=== PATIENT | female | born 1975 | race Hispanic/Latino ===

== ENCOUNTER 2025-08-21 05:58 | Day surgery (SDC) | payer BC ==
[2025-08-19 13:14] LABS: IMMATURE GRANULOCYTE ABSOLUTE 0.01 K/uL (0-1); NUCLEATED RED BLOOD CELLS 0.0 % (0.0-0.19); PLATELET COUNT (AUTO) 349 K/uL (130-400); RED BLOOD CELL COUNT(AUTO) 4.25 MIL/uL (4.00-5.50); RED CELL DISTRIBUTION WIDTH 13.4 % (11.0-15.5); WHITE BLOOD COUNT (AUTO) 6.0 K/uL (4.8-10.8)
[2025-08-19 13:16] VITALS: BP 119/62; PULSE 57; RESP 18; TEMP 97.9
[2025-08-19 13:23] LABS: CREATININE 0.7 mg/dL (0.5-1.0); GLOMERULAR FILTR. RATE CALC 107.0 mL/min (>90); GLUCOSE,RANDOM 82.0 mg/dL (70-105); SODIUM SERUM 140.0 mmol/L (136-145); UREA NITROGEN, BLOOD 11.0 mg/dL (7-18)
[2025-08-19 13:25] LABS: INR 0.97 (0.85-1.15)
--- NOTE | 2025-08-19 18:22 | EKG ---
[facility] Test Date: 2025-08-19 Test Time: 12:52:48 Pat Name: TISHA MORGAN Department: [facility] Room: Gender: F [employer] Driver: [id number] : 1975 Requested By: MARGARITO HOUSER Order Number: [id number] Reading MD: Daphney Null Measurements Intervals [place] Rate: 52 P: 22 MI: 131 QRS: 28 QRSD: 80 T: 40 QT: 441 QTc: 411 Interpretive Statements Sinus rhythm No previous ECG available for comparison Electronically Signed On 08-20-2025 16:11:23 CDT by Daphney Null Please click the below link to view image of tracing.
[2025-08-21] VITALS (14 sets, daily range): BP systolic 106–134; BP diastolic 59–75; PULSE 64–103; RESP 15–18; TEMP 97.2–97.9
[~2025-08-21] VITALS: Ht 165.1 cm; Wt 74.1 kg
[~2025-08-21 05:58] MED LIST: LEVO125C5 PO; SERT-439 PO
[2025-08-21] MEDS ORDERED: LACTATED RINGERS 1000ML 1,000 ML IV ONE (06:48)
[2025-08-21] MEDS ORDERED: SUGAMMADEX SODIUM 200 MG/2 ML VIAL IV ONE (07:16)
[2025-08-21] MEDS ORDERED: LIDOCAINE PF 100MG/5ML (2%) SYRINGE 5ML ONE (07:22)
[2025-08-21] MEDS ORDERED: SUCCINYLCHOLINE CHLORIDE 20 MG/ML 10 ML VIAL ONE (07:23)
[2025-08-21] MEDS ORDERED: MIDAZOLAM HCL 1 MG/ML 2ML VIAL ONE (07:23)
[2025-08-21] MEDS ORDERED: INDOCYANINE GREEN 25 MG VIAL IJ ONE (07:24)
[2025-08-21] MEDS: INDOCYANINE GREEN 25 MG VIAL IJ ONE (07:50)
--- NOTE | 2025-08-21 09:51 | OP ---
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 IC green appropriately identified cystic duct, hepatic duct and common bile duct. Of note very short cystic and hepatic duct branching into left and right very close to the cystic as well. No evidence of filling defects or ductal biliary dilation.] PROCEDURE: [1. Robotic assisted laparoscopic cholecystectomy. 2. IC green cholangiography] ESTIMATED BLOOD LOSS: [10 cc] INDICATIONS: [49-year-old female with chronic right upper quadrant pain, nausea who was found to multiple gallstones in a contracted gallbladder concerning for symptomatic cholelithiasis and chronic cholecystitis.. Patient failed conservative management with dietary changes and medications. Recommendation was given for surgical removal of gallbladder. Risks, benefits, alternative who presented to the patient including the possibility of symptoms remaining even with cholecystectomy. All questions were answered. Patient agreed proceed with surgical intervention] DESCRIPTION OF PROCEDURE: [After appropriate consent was obtained, the patient was brought into the operating room and placed in supine position on the operating table. SCDs were placed, preop antibiotics were given. Patient underwent induction of general anesthesia, endotracheal intubation. Patient was then prepped and draped in usual sterile fashion. Time-out was performed. Through a left subcostal incision, Veress needle was inserted into the peritoneal cavity. Insufflation was allowed to 12 mmHg. Through a supraumbilical incision, 8 mm trocar and laparoscope were inserted into the peritoneal cavity using Yurpyview. Veress needle and this vicinity were examined with no signs of injury. Rest of my trocars were all placed under direct visualization. Patient was positioned on a reverse Trendelenburg at 20. The Ishan robot was docked. Upon examination of the gallbladder, it appeared enlarged, mildly inflamed. The liver and gallbladder were retracted cephalad exposing area for Calot's triangle dissection. Using hook electrocautery, dissection was accomplished. IC green cholangiography showed proper identification of the cystic duct, visualization of hepatic and common bile duct. Cystic duct was short, and hepatic duct divided into left and right shortly after the cystic duct takeoff. Cystic artery was also isolated. Cystic artery was clipped once and cauterized and sharply divided. Cystic duct was clipped 3 times with two of these clips staying behind after sharp division. Gallbladder was removed from the gallbladder fossa using bipolar energy. Hemostasis was achieved with bipolar energy as well. Once removed from the gallbladder fossa, gallbladder was placed in an Endo-Catch bag. [place] robot was undocked at this time. Gallbladder was removed from the peritoneal cavity with a bag through an 8 mm trocar site. The fascia of the site was closed with 0 Vicryl suture through a suture Passer. Final inspection revealed adequate hemostasis, no concerns for leakage. Counts were correct at the end of the case. All instruments were removed. Abdomen was allowed to deflate. Skin incisions were closed with 4-0 Monocryl. Dermabond was applied over the incisions. Patient tolerated the procedure well. Was transferred to recovery in a good condition ] MARGARITO HOUSER MD Aug 21, 2025 09:50
--- NOTE | 2025-08-21 09:52 | DS ---
Discharge Summary Hospital Course Patient is a 49-year-old female who was admitted from the outpatient setting for elective robotic assisted laparoscopic cholecystectomy due contracted gallbladder and symptomatic cholelithiasis on 08/21/2025. No issues during the procedure. Patient tolerated the procedure well. Patient currently in PACU no acute distress. Remains hemodynamically stable, afebrile. Normal sinus rhythm. Aerating well on 2 L nasal cannula. Abdomen is benign, incisions clean dry and intact. Appropriately tender to palpation, no rebound or guarding. Patient will be observed in recovery and discharged home per anesthesia protocol. Patient will continue to avoid lifting more than 20 lb for a month. She will continue to advance diet as tolerated. Postop meds have been submitted to the patient's pharmacy. Postop follow up already in place. Return precautions given including fevers of 101.5 or higher, worsening abdominal pain, intractable nausea and vomiting, just any concerns about her overall health. MARGARITO HOUSER MD Aug 21, 2025 09:52
== END 2025-08-21 11:22 | disposition home or self-care (01) ==
LOC: DAH 05:58
PROVIDERS: ATTEND Surgery
DX: K80.10 Calculus of gallbladder with chronic cholecystitis without obstruction (principal); K82.8 Other specified diseases of gallbladder; F41.9 Anxiety disorder, unspecified; F32.A Depression, unspecified; Z98.84 Bariatric surgery status; Z90.710 Acquired absence of both cervix and uterus; Z79.01 Long term (current) use of anticoagulants; Z79.899 Other long term (current) drug therapy
CPT/HCPCS: 36415; 47563; 80048; 85025; 85610; 85730; 86850; 86900; 86901; 88304; 93005; J0330; J1100; J1171; J2003; J2250; J2371; J2405; J2704; J3010; J3490; J7030; J7120; S2900; A4213; A4215; A4216; A4221; A4222; A4223; A4600; A4663; A4930; A6260; J0665; J0690